=== PATIENT | female | born 1950 | race Caucasian/White ===

== ENCOUNTER → 2018-04-16 | Outpatient (CLI) | payer MEDICARE ==
[~2018-04-16] MED LIST: ALBUTEROL INH IH; ASPIRIN EC81 M1 PO; BENTYL10 MG PO; CELEXA 20 MG TA20 M1 PO; CELEXA PO; CLOBETASOL PROP50 M1 TOP; COMBIVENT INH; DOMPERIDONE; GLUCOPHAGE1000 MG PO; HCTZ; HYDROCHLOROTHIA25 M2 PO; HYDROCODON-ACE1 EAC4; HYDROCODON-ACE1 EAC5 PO; IRON; IRON325 PO; LEVOTHYROXIN0.075 MG; LIPITOR40 MG PO; LISINOPRIL5 MG PO; MAGNES; MOBIC15 MG PO; NADOLOL 40 MG T40 M1 PO; NORCO 10-325 T1 EACH PO; NORCO 5-325 TA1 EACH PO; NORVASC5 MG PO; PERCOCET 5-3251 EACH PO; PREDNISONE 10 M10 MG PO; PRILOSEC40 MG PO; ROBAXIN 750 MG750 M1 PO; STOOL SOFTENER PO; SYNTHROID PO; SYNTHROID25 MCG PO; VAGIFEM10 MCG VG; VITAMIN B-12500 MCG PO; XANAX 0.5 MG0.5 M1 PO; XANAX 0.5 MG0.5 MG PO; ZESTORETIC 10-1 EACH PO; ZOLOFT50 MG PO; ZYRTEC10 M2 PO; [UNRECOGNIZED DRUG - OTHER] TOP
== END ==
LOC: M.RAD 13:53
DX: Z12.31 Encounter for screening mammogram for malignant neoplasm of breast (principal)

== ENCOUNTER → 2018-04-29 | Outpatient (CLI) | payer MEDICARE | LOC: M.RAD 04-21 12:29 | DX: R92.8 Other abnormal and inconclusive findings on diagnostic imaging of breast (principal); N63.10 Unspecified lump in the right breast, unspecified quadrant ==

== ENCOUNTER → 2018-05-08 | Outpatient (CLI) | payer MEDICARE ==
--- NOTE | 2018-05-19 15:06 | PATH ---
[address] [address] PATHOLOGY RPT PROCEDURE Name: ROXY SHIPMAN [id number] Admission: 05/08/18 Date of : 54 Discharge: Report #: [id number] Path Case #: [id number] [facility] Accession Number: [id number] . 01 Material submitted: . PART A: RIGHT POSTERIOR BREAST BIOPSY PART B: RIGHT SUPERIOR BREAST BIOPSY . 01 Clinical history: . A. Right breast stereotactic biopsy for mass #1 posterior B. Right breast stereotactic biopsy for mass #2 superior . . 02 Diagnosis: A. Right posterior breast mass, stereotactic biopsy: - Fat necrosis (see comment). . B. Right superior breast mass, stereotactic biopsy: - INFILTRATING DUCTAL ADENOCARCINOMA, HIGH-GRADE (III 0F III), SPANNING 9 MM (SEE COMMENT). [facility] . 02 Comment: Specimen B Specimen type: Stereotactic biopsy. Tumor site: Right superior breast. Tumor quantitation: Approximately 60% of submitted tissues. Histologic type: Ductal adenocarcinoma Histologic grade: High-grade (III of III). Tubules, nuclei and mitoses: 3, 2, 3. LVSI: Not identified. Microcalcifications: Identified in non-neoplastic breast. Markers: Breast tumor profile pending. Block: B3. . . In the right posterior breast biopsy (A) no breast epithelial tissues are identified. No ductal carcinoma in situ or LCIS is seen in the right superior breast biopsy. A properly controlled E-cadherin stain performed on B1 highlights neoplastic cells supporting the classification. Breast tumor profile studies are pending on B3 and will be the subject of an addendum report. Specimens A and B are reviewed with Dr. Garcia who agrees with the diagnoses. Suellen Alvarado ([facility] Breast Navigator) notified at approximately 1100 on 05/12/2018. (TONY:[facility] 05/11/2018) . 02 Addendum: . Special studies report received from [facility], [address] [place] [address] PATHOLOGY RPT PROCEDURE Name: ROXY SHIPMAN Room: [facility]#: [id number] Admission: 05/08/18 Date of : 54 Discharge: Report #: [id number] Path Case #: [id number] [place], [address] [facility], [place], [address], on case [id number], labeled with their number [id number], dated 05/18/2018. . Breast/Prognostic Marker Analysis . Specimen Site: Rt Breast,Superior Mass Specimen ID #: [id number] . . ER (Estrogen Receptor) Present/Positive Percent: 100.00% Analysis: Manual Comments: Staining intensity: Strong . MS (Progesterone Receptor) Present/Positive Percent: 90.00% Analysis: Manual Comments: Staining intensity: Moderate to strong . HER2 Not Over-Expressed Score: 1+ Analysis: Manual . Ki-67 High Proliferation Percent: 25.00% Analysis: Manual . Time to Fixation (Cold Ischemic Time): 5 minutes Duration of Fixation: Not Provided Type of Fixative: 10% Neutral Buffered Formalin . at [facility]. Yvrose Richardson M.D. Pathologist . . Methodology The HER2 Receptor protein expression is analyzed using the [place] HER2 rabbit monoclonal antibody (clone 4B5). This assay is used for diagnostic determination of the HER2 protein over-expression in paraffin embedded, formalin fixed breast cancer tissue on the [place] Benchmark. The specimen is processed using a polymer detection system. The membrane staining of the tumor is determined either by manual score or image analysis. This antibody is intended for in vitro diagnostic use. [place] [address] PATHOLOGY RPT PROCEDURE Name: ROXY SHIPMAN Room: [facility] NATALIE Woo#: [id number] Admission: 05/08/18 Date of : 54 Discharge: Report #: [id number] Path Case #: [id number] per package insert; 0, 1+, 2+, and 3+. This test is used for clinical purposes. . A rabbit monoclonal antibody (clone SP1) that recognized the Estrogen Receptor is used to perform immunohistochemistry on routinely fixed (formalin) paraffin embedded tissue on the [place] Benchmark. The specimen is processed using a polymer detection system. The percentage of stained tumor nuclei is determined either manually or by image analysis. This test is intended for in vitro diagnostic use. This test is used for clinical purposes. . A rabbit monoclonal antibody (clone 1E2) that recognized the Progesterone Receptor is used to perform immunohistochemistry on routinely fixed (formalin) paraffin embedded tissue on the [place] Benchmark. The specimen is processed using a polymer detection system. The percentage of stained tumor nuclei is determined either manually or by image analysis. This test is intended for in vitro diagnostic use. This test is used for clinical purposes. . A rabbit monoclonal antibody (clone 30-9) that recognized Ki67 is used to perform immunohistochemistry on routinely fixed (formalin) paraffin embedded tissue on the [place] Benchmark. The specimen is processed using a polymer detection system. The percentage of stained tumor nuclei is determined either manually or by image analysis. This test is intended for in vitro diagnostic use. This test is used for clinical purposes. . Intended Use: This antibody is intended for in vitro diagnostic (IVD) use. HER2 (4B5) is a rabbit monoclonal antibody intended for the semi-quantitative detection of HER2 antigen in sections of formalin-fixed, paraffin embedded normal and neoplastic tissue. . This antibody is intended for in vitro diagnostic (IVD) use. Estrogen Receptor (ER) (SP1) is a rabbit monoclonal antibody (IgG) that is intended for the qualitative detection of estrogen receptor (ER) antigen in sections of formalin-fixed, paraffin-embedded tissue. ER is a rabbit monoclonal antibody that recognizes human estrogen receptor alpha. . This antibody is intended for in vitro diagnostic (IVD) use. Progesterone Receptor (MS) (1E2) is a rabbit monoclonal antibody (IgG) that is intended for the qualitative detection of progesterone receptor (MS) antigen in sections of formalin fixed, paraffin embedded tissue. MS is a rabbit monoclonal antibody that recognizes the A and B forms of the human progesterone receptor. . This antibody is intended for in vitro diagnostic (IVD) use. Ki-67 (30-9) is a rabbit monoclonal antibody (IgG) directed against C-terminal portion of Ki-67 antigen. Staining for Ki-67 can be used to aid in assessing the proliferative activity of normal and neoplastic tissue. [facility] [place] [address] PATHOLOGY RPT PROCEDURE Name: ROXY SHIPMAN Mehran Room: [facility]#: [id number] Admission: 05/08/18 Date of : 54 Discharge: Report #: [id number] Path Case #: [id number] protein expressed in proliferating cells. During the cell cycle, the Ki-67 antigen is present in the G1, S, G2 and M phase but is absent in the G0 (quiescent phase). . . Disclaimer This Test was performed by [facility] at [address], [address]. . [facility] is a business unit of [employer] a wholly-owned subsidiary of [employer]. . This assay has not been validated on decalcified tissues. Results should be interpreted with caution if this specimen was decalcified given the likelihood of false negativity on decalcified specimens. . Any image(s) that accompany this report is/are a sales representative sales manager image(s) only and should not be used to render a diagnosis. . This interpretation is contingent on the specimen and the clinical information received. . For any special tests/stains performed, known positive cells or tissues are tested with each marker and examined to ensure positivity. Positive and negative internal controls, if present, react appropriately. . This analysis is an adjunct to the evaluation of the referring physician and does not represent a final diagnosis. . The immunohistochemistry tests performed at [facility]. were validated on tissue fixed in 10% neutral buffered formalin. The performance characteristics of the tests performed on tissue processed in other fixatives is not known. . . HER2 testing at [facility] is performed in compliance with the 2013 updated ASCO/CAP Clinical Practice Guidelines and Recommendations for HER2 testing in Breast Cancer. If the result is EQUIVOCAL (2+), it must be confirmed by an alternative assay such as FISH or Dual BOOM. REF: Donis OTERO, et al. Recommendations for human epidermal growth factor receptor 2 testing in breast cancer: [place] Society of Clinical Oncology/College of [place] pathologists Clinical Practice Guideline Update. J Clin Oncol. 2013 Jun 04;31(31):5381-3267. . HER2 and ER/MS ASCO/CAP guidelines require fixation in neutral buffered formalin for a minimum of 6 and a maximum of 72 hours. Fixation times less than 6 hours may not adequately preserve cell proteins. Fixation times longer than 72 hours may cause excess [place] [address] PATHOLOGY RPT PROCEDURE Name: ROXY SHIPMAN Room: [facility] Woo#: [id number] Admission: 05/08/18 Date of : 54 Discharge: Report #: [id number] Path Case #: [id number] the antigen available for staining. Either scenario can cause reduced staining; hence false negative results are possible and should be considered for these situations if the HER2 IHC score is less than 3+ or ER or MS is negative (no staining or <1% positive). It is recommended that specimens fixed longer than 72 hours with HER2 IHC scores less than 3+ be confirmed by HER2 FISH or Dual BOOM. The time from biopsy/excision to fixation in formalin (cold ischemic time) must be less than 1 hour. Time to fixation (cold ischemic time) greater than 1 hour should be interpreted with caution. HER2 testing, mainly HER2 by FISH, is particularly vulnerable since excessive cold ischemic time results in preferential loss of HER2 probe signals that may lead to false negative results. . SCORE STAINING PATTERN IN TUMOR CELLS INTERPRETATION RESULTS 0 No staining observed or incomplete, faint membrane staining in less than or equal to 10% of tumor cells. Negative 1+ Incomplete, faint membrane staining in greater than 10% of tumor cells. Negative 2+ Incomplete and/or weak/moderate circumferential membrane staining in greater than 10% of the invasive tumor cells or complete, circumferential, intense alternative assay staining in less than or equal to 10% of invasive tumor cells. Equivocal* *Must be confirmed by alternative assay (IHC/FISH/Dual BOOM) 3+ Intense, complete membrane staining in greater than 10% of tumor cells. Positive . A complete copy of the report is on file. . Professional and Technical services performed by [facility]. at [address] [place] [address]. . (SAMIR 05/18/2018) . . This case was prepared and proofread by Dr. Anthony Fraser and electronically signed and released by Dr. Viktor Orellana. . (TONY:samir; 05/18/2018) . LBQ/05/18/2018 Addendum Electronically Signed by Viktor Orellana M.D. . 02 Electronically signed: [place] [address] PATHOLOGY RPT PROCEDURE Name: ROXY SHIPMAN Room: [facility]#: [id number] Admission: 05/08/18 Date of : 54 Discharge: Report #: [id number] Path Case #: [id number] Anthony Fraser MD, Pathologist NPI- [id number] . 01 Gross description: . A. Received in formalin labeled "Roxy Shipman, right breast 1 posterior stereotactic BX," are multiple needle cores of yellow-sandhu fibrofatty tissue measuring 3.5 x 3.2 x 0.5 cm in aggregate dimensions. The tissue is submitted in its entirety in cassettes A1 through A3. The cold ischemic time is 2 minutes. The total formalin fixation time is 6 hours and 45 minutes. . B. Received in formalin labeled "Roxy Shipman, right breast 2 superior stereotactic BX," are multiple needle cores of yellow-sandhu fibrofatty tissue measuring 3.2 x 2.7 x 0.6 cm in aggregate dimensions. The tissue is submitted in its entirety in cassettes B1 through B3. The cold ischemic time is 5 minutes. The total formalin fixation time is 6 hours and 10 minutes (TSD; 05/08/2018) TOB/TOB . 02 Pathologist provided ICD-10: C50.911, N64.1 . 02 CPT . 471712, 819729, I03736 Specimen Comment: A courtesy copy of this report has been sent to Specimen Comment: [phone], . Specimen Comment: Report sent to / DR CANCHOLA Specimen Comment: A duplicate report has been generated due to demographic updates. Performed at: 01 [facility] [address], [place], [place] [id number] MD Yrn Benjamin MD Phone: [phone] Performed at: 02 [facility] [address], [place], [place] [id number] MD Anthony Fraser MD Phone: [phone]
== END ==
LOC: M.RAD 10:55
DX: N63.10 Unspecified lump in the right breast, unspecified quadrant (principal); R92.8 Other abnormal and inconclusive findings on diagnostic imaging of breast

== ENCOUNTER → 2018-05-26 | Outpatient (CLI) | payer MEDICARE | LOC: M.ULTRA 05-25 08:00 | DX: N63.10 Unspecified lump in the right breast, unspecified quadrant (principal) ==

== ENCOUNTER → 2018-06-08 | Day surgery (SDC) | payer MEDICARE ==
[2018-06-08 06:55] LABS: HEMATOCRIT 32.4 % (37.0-47.0); HEMOGLOBIN 10.9 gm/dL (12.0-15.0); MCH 28.3 pg (26.0-34.0); MCHC 33.7 g/dL (28.0-37.0); MPV 7.5 fl. (7.2-11.1); RBC 3.85 mil/uL (4.20-5.00); RDW-CV 14.6 % (10.5-14.5); WBC 8.1 thou/uL (4.0-11.0)
[2018-06-08 07:05] LABS: CALCIUM 9.1 mg/dL (8.5-10.1); CREATININE 1.2 mg/dL (0.6-1.3); POTASSIUM 4.1 mmol/L (3.5-5.1)
--- NOTE | 2018-06-08 11:46 | EKG ---
[place] [address] ELECTROCARDIOGRAM REPORT Name: RAMONITAKILO Mehran Room: [facility]#: [id number] Admission: 06/08/18 Attend Phys: Inés Abel MD Discharge: Date of : 54 Report #: [id number] THIS REPORT FOR: //name// [facility] Test Date: 2018-06-08 Test Time: 07:42:02 Pat Name: KILO SHIPMAN Department: Room: Gender: F Verifying Machine Operator: : 1950 Requested By: Inés Abel Order Number: [id number] Ehsan MD: Augustus Salguero Measurements Intervals [place] Rate: 98 P: 41 WA: 141 QRS: 38 QRSD: 92 T: 58 QT: 337 QTc: 431 Interpretive Statements Sinus rhythm Abnormal R-wave progression, early transition Compared to ECG 06/27/2015 22:16:50 No significant changes Electronically Signed On 06-08-2018 11:45:55 [employer] HEL[employer] by Augustus Salguero [email or web address] <ELECTRONICALLY SIGNED> By: Augustus Salguero MD, [facility] 06/08/18 1145 1 Augustus Salguero MD, FACC /EPI
--- NOTE | 2018-07-02 08:29 | OP ---
[address] [address] OPERATIVE REPORT Name: KILO SHIPMAN Room: [facility]#: [id number] Admission: 06/08/18 Attend Phys: Inés Abel MD Discharge: Date of : 54 Report #: [id number] THIS REPORT FOR: //name// CC: Inés Rico DATE OF SERVICE: 06/08/2018 PREOPERATIVE DIAGNOSIS: Right breast cancer. POSTOPERATIVE DIAGNOSIS: Right breast cancer. PROCEDURE: 1. Injection of blue dye. 2. Right breast needle localized lumpectomy. 3. Right axillary sentinel lymph node biopsy. SURGEON: Inés Abel MD TELEPHOTO ENGINEER: ILYA Wellington. COMPLICATIONS: None. ANESTHESIA: General anesthesia. ESTIMATED BLOOD LOSS: 15 mL. SPECIMENS REMOVED: 1. Right breast cancer. 2. Right breast new superior margin. 3. Right breast new lateral margin. 4. Right breast new inferior margin. 5. Right breast new medial margin. 6. Right breast new posterior margin. 7. Right breast new anterior margin -- medial. 8. Right breast new anterior margin -- lateral. 9. Right axillary sentinel lymph node #1, hot, blue, 35,000. 10. Right axillary sentinel lymph node #2, hot, not blue, 175. 11. Right axillary sentinel lymph node #3, hot, not blue, max count 4200. COMPLICATIONS: None. OTHER: Incision 4 cm in length, 2 cm from nipple 1 o'clock periareolar and other clip and lesion within the mammographic specimen and sentinel node x 1 [place] [address] OPERATIVE REPORT Name: RAMONITAKILO Mehran Room: [facility]#: [id number] Admission: 06/08/18 Attend Phys: Inés Abel MD Discharge: Date of : 54 Report #: [id number] INDICATIONS: The patient is a 68-year-old female with a palpable mass in her right breast. Imaging on 04/16/2018 and 04/29/2018 showed a 2.1 cm ill-defined lobulated mass at the anterior medial right breast and a 6 mm hypoechoic focus at 1 o'clock, 3 cm from nipple. A stereotactic biopsy of both lesions on 05/08/2018, path of the more anterior lesion at the nipple level was grade 3 invasive ductal carcinoma, ER/OK positive, HER-2 negative, Ki-67 of 25%. The more posterior and superior lesion was fat necrosis. She was unable to do an MRI due to extreme claustrophobia. She was interested in breast conservation with lumpectomy and sentinel node biopsy. Risks and benefits for such were discussed with the patient and delineated in the H and P. She agreed to proceed. PROCEDURE IN DETAIL: The patient was brought to the operating room after informed consent had been obtained. She was placed under general anesthesia in the supine position with her right arm extended. Preoperatively, she had been taken to ultrasound and mammogram for wire localization of the mass, followed by Nuclear Medicine for injection for the sentinel node portion of the case. A 5 mL of Lymphazurin blue was injected in an intradermal and subdermal location in the upper outer periareolar region of the right breast. The right breast and axilla were then prepped and draped in normal sterile manner. Prior to all skin incisions a combination of 1% lidocaine plain and 0.5% Marcaine with epinephrine was used. The periareolar skin incision was made with a knife. This was deepened to the subcutaneous tissues using Bovie electrocautery. A path was created toward the wire exit site. Once the wire was identified, it was grasped with 2 hemostats and brought into the incision. The Bovie electrocautery was used to excise a lump of tissue surrounding the pathway of the wire. Once this was completely removed, it was labeled for orientation purposes and handed off the field. The wound bed was then examined. It was copiously irrigated with normal saline and noted to be adequately hemostatic. Attention was then turned for resection of margins. Attention was turned to the region of the superior margin. This region was grasped with an Allis clamp. The Bovie electrocautery was used to excise a thin rim of tissue to encompass the new superior margin. This was labeled for orientation purposes and handed off the field. This process was then repeated with the lateral, inferior, medial, posterior and anterior margins. Meanwhile, mammogram did confirm that the clip and the lesion were within the mammographic specimen. Once all these margins were removed, the wound was copiously irrigated and noted to be adequately hemostatic. A moistened Ray-Maynor sponge was placed and attention was turned to the axilla. The area of highest counts in the axilla was marked out with a marking pen and skin incision was made in this region with a knife. This was deepened through the subcutaneous tissues using the Bovie electrocautery. A fairly superficial hot blue lymph node was identified. This did end up being a very extremely long fatty lymph node that traveled deep within the axilla. This was excised with a combination of Ligaclip and Bovie electrocautery dissection. Once completely removed, counts were obtained and this was sent off as sentinel node #1. Attention was then redirected to the axilla. An additional area of radiotracer [facility] [address] [place] [address] OPERATIVE REPORT Name: RAMONITAKILO A Room: [facility]#: [id number] Admission: 06/08/18 Attend Phys: Inés Abel MD Discharge: Date of : 54 Report #: [id number] uptake was noted. I did find a small lymph node in this area that was isolated with a combination of Ligaclips and Bovie electrocautery dissection. However, upon removal, although it was hot, it did not seem to be the area that was yielding the highest counts. Therefore this was sent off as sentinel node #2, but this was sent for permanent specimen. The axilla was then again interrogated with the Mary probe. An extremely hot area was identified, this was quite tedious dissection, but finally a lymph node was identified in this region. It was isolated with a combination of Ligaclip and Bovie electrocautery dissection, was completely removed, counts were obtained and this was sent off as sentinel node #3, but again for permanent specimen. The axilla was copiously irrigated with normal saline. The Mary probe was again used. There were no additional hot counts noted. The axilla was copiously irrigated. It was noted to be adequately hemostatic. A single interrupted suture of 3-0 Vicryl was used to reapproximate the axillary fascia. The deep dermal layers were then closed with interrupted 3-0 Vicryl sutures and skin was closed with 4-0 Monocryl in a subcuticular manner. Attention was then turned to the breast incision. The wound was again examined and noted to be adequately hemostatic. Some of the deeper tissues were reapproximated with interrupted 3-0 Vicryl sutures. The lumpectomy cavity had been marked with clips. The deep dermal layers were closed with interrupted 3-0 Vicryl sutures. The skin was closed with 4-0 Monocryl in a subcuticular manner. Both wounds were dressed with Dermabond dressing. The patient tolerated the procedure well. Sponge, lap and needle counts were correct x 2 at the end of procedure. She was transferred to recovery in stable condition. <ELECTRONICALLY SIGNED> By: Inés Abel MD 07/02/18 0829 1237 [id number] Abel MD /nt
--- NOTE | 2018-07-02 11:08 | PATH ---
[address] [address] PATHOLOGY RPT PROCEDURE Name: ROXY SHIPMAN Mehran Room: [facility]#: [id number] Admission: 06/08/18 Date of : 54 Discharge: Report #: [id number] Path Case #: [id number] [facility] Accession Number: [id number] . 01 Material submitted: . PART A: FROZEN, RIGHT AXILLARY SENTINEL NODE #1 HOT, BLUE, AMX COUNT [id number] PART B: RIGHT SENTINEL LYMPH NODE #2 HOT, NOT BLUE, MAX COUNT 175 PART C: RIGHT SENTINEL LYMPH NODE #3, HOT, NOT BLUE, MAX COUNT 4200 PART D: RIGHT BREAST CANCER, LONG LATERAL, SHORT SUP, DOUBLE DEEP PART E: RIGHT BREAST CANCER, NEW SUP MARGIN PART F: RIGHT BREAST CANCER, NEW LATERAL MARGIN PART G: RIGHT BREAST CANCER, NEW INFERIOR MARGIN PART H: RIGHT BREAST CANCER, NEW MEDIAL MARGIN PART I: RIGHT BREAST CANCER, NEW POSTERIOR MARGIN PART J: RIGHT BREAST CANCER, NEW ANTERIOR/MEDIAL MARGIN PART K: RIGHT BREAST CANCER, NEW ANTERIOR LATERAL MARGIN . 01 Clinical history: . Right breast cancer . 02 Diagnosis: A. Right axillary sentinel lymph node #1, hot, blue, max count 35,000: - One benign lymph node with massive fatty replacement (0/1). See comment. . B. Right sentinel lymph node #2, hot, not blue, max count 175 - One benign lymph node (0/1). See comment. . C. Right sentinel lymph node #3, hot, not blue, max count 4200: - One benign lymph node (0/1). See comment. . D. Right breast cancer, lumpectomy: - INFILTRATING DUCTAL ADENOCARCINOMA, HIGH-GRADE, MICROPAPILLARY TYPE, SPANNING 18 X 15 X 8 MM, WITH FOCAL INVOLVEMENT OF ANTERIOR MARGIN. - DUCTAL CARCINOMA IN SITU (DCIS), HIGH-GRADE, SOLID AND COMEDO TYPES, SPANNING 2 MM, WITH ALL SURGICAL MARGINS FREE OF INVOLVEMENT AND CLOSEST (ANTERIOR/SUPERFICIAL) 2 MM AWAY. SEE COMMENT. . E. Right breast cancer, new superior margin: - Benign breast with luminal calcifications, negative for atypia. . F. Right breast cancer, new lateral margin: - Benign breast tissue with mild chronic inflammation and luminal calcifications, negative for atypia. . G. Right breast cancer, new inferior margin: - Benign breast tissue, negative for atypia. . H. Right breast cancer, new medial margin: - Benign breast tissue, [place] [address] PATHOLOGY RPT PROCEDURE Name: ROXY SHIPMAN Room: [facility]#: [id number] Admission: 06/08/18 Date of : 54 Discharge: Report #: [id number] Path Case #: [id number] . I. Right breast cancer, new posterior margin: - Benign breast tissue with mild chronic inflammation, negative for atypia. . J. Right breast cancer, new anterior / medial margin: - Benign breast tissue, negative for atypia. See comment. . K. Right breast cancer, new anterior lateral margin: - Benign breast tissue, negative for atypia. [facility]/06/11/2018 . 02 Comment: Surgical Pathology Cancer Case Summary . Protocol posting date: August 2017 . INVASIVE CARCINOMA OF THE BREAST: . Procedure ___ Other: Lumpectomy . Specimen Laterality ___ Right . Tumor Size ___ Greatest dimension of largest invasive focus >1 mm: 18 mm . Histologic Type ___ Invasive micropapillary carcinoma . Histologic Grade (Virgilio Histologic Score) . Glandular (Acinar)/Tubular Differentiation ___ Score 3 (<10% of tumor area forming glandular/tubular structures) . Nuclear Pleomorphism ___ Score 2 (cells larger than normal with open vesicular nuclei, visible nucleoli, and moderate variability in both size and shape) . Mitotic Rate ___ Score 3 (=8 mitoses per mm2) . Overall Grade ___ Grade 3 (scores of 8 or 9) . + Tumor Focality + ___ Single [place] [address] PATHOLOGY RPT PROCEDURE Name: ASHLEYROXY Mehran Room: [facility].#: [id number] Admission: 06/08/18 Date of : 54 Discharge: Report #: [id number] Path Case #: [id number] . Ductal Carcinoma In Situ (DCIS) ___ Present + ___ Negative for extensive intraductal component (EIC) . + Size of DCIS + Estimated size of DCIS: at least 2 mm . + Architectural Patterns + ___ Comedo + ___ Solid . + Nuclear Grade + ___ Grade III (high) . + Necrosis + ___ Present, central (expansive "comedo" necrosis) . + Lobular Carcinoma In Situ (LCIS) + ___ No LCIS in specimen . Margins . Invasive Carcinoma Margins ___ Uninvolved by invasive carcinoma Distance from closest margin: ___ Cannot be determined: Focal marginal involvement of anterior margin in specimen D with uncertain orientation of additional subsequent new anterior / medial and new anterior / lateral margins (specimens J and K) . DCIS Margins ___ Uninvolved by DCIS Distance from closest margin: ___ Cannot be determined: See explanation for marginal status of invasive tumor . Regional Lymph Nodes . ___ Uninvolved by tumor cells Number of Lymph Nodes Examined: 3 Number of [place] Nodes Examined: 3 . + Lymphovascular Invasion + ___ Indeterminant, see comment . PATHOLOGIC STAGE CLASSIFICATION (pTNM, AJCC 8TH EDITION) . Primary Tumor (Invasive Carcinoma) (pT) ___ pT1c:Tumor >10 mm but =20 mm in greatest dimension [address] [address] PATHOLOGY RPT PROCEDURE Name: ROXY SHIPMAN Room: [facility] M.R.#: [id number] Admission: 06/08/18 Date of : 54 Discharge: Report #: [id number] Path Case #: [id number] . Regional Lymph Nodes (pN) . Modifier ___ (sn):[place] node(s) evaluated. If 6 or more nodes (sentinel or nonsentinel) are removed, this modifier should not be used. . Category (pN) ___ pN0:No regional lymph node metastasis identified or ITCs only# . + Ancillary Studies Breast tumor profile performed previously on right superior breast mass stereotactic biopsy ([id number] B3): . Estrogen receptor: 100% Progesterone receptor: 90% HER2: 1+/not overexpressed Ki-67: 25% . + Microcalcifications + ___ Present in non-neoplastic tissue + ___ Present in invasive tumor . + Clinical History + Right superior breast stereotactic biopsy performed around 05/08/2018 showing high-grade ductal carcinoma spanning 9 mm ([id number] B) . Properly controlled keratin AE1/AE3 stains performed on A1, B1, and C1 and keratin Bereket performed on A4 show no evidence of metastatic tumor. The initial lumpectomy showed focal involvement of the anterior margin in D7; however, per discussion with Dr. Natalee Abel on 06/11/2018, she notes specimens J and K provided wider clearance of this focus. The tumor infiltrates predominantly in a micropapillary fashion with some areas of solid nest infiltration and a focus indeterminant for lymphovascular invasion is seen in D12. There is minimal DCIS present with the largest focus noted within the confines of the infiltrating tumor in D10. Per request of Dr. Abel, Oncotype testing will be performed on D9 and will be the subject of a separate report. (TONY:wade 06/11/2018) . 02 Addendum: . Special studies report received from [employer]. Oncotype DX Breast Cancer Assay, [address] [place] [address], on case [id number], labeled with their number [id number], dated 06/19/2018. . Breast Cancer Report - Node Negative [place] [address] PATHOLOGY RPT PROCEDURE Name: ROXY SHIPMAN Room: [facility]#: [id number] Admission: 06/08/18 Date of : 54 Discharge: Report #: [id number] Path Case #: [id number] Recurrence Score Result=8 . Oncotype DX Breast Recurrence Score test uses RT-PCR to determine the expression of a panel of 21 genes in tumor tissue. The Recurrence Score is calculated from the gene expression results and ranges from 0-100. . The findings are applicable to women who have stage I or II node negative (N-), estrogen receptor positive (ER+) breast cancer, and will be treated with 5 years of tamoxifen (royal). It is unknown whether the findings apply to other patients outside these criteria. . Clinical Experience: The following results are from a clinical validation study that included 668 patients from the NSABP B-14 study. The study included female patients with stage I or II, N-, ER+ breast cancer treated with 5 years of royal. . . Prognosis: 10-Year Risk of Distant Recurrence after 5 Years of Royal, Based on the Recurrence Score Result (from NSABP B-14) . 10-Year Risk of Distant Recurrence . Royal Alone: 6% (95% Cl: 4%-8%) . . . Breast Cancer Report - Node Negative Prediction of Chemotherapy Benefit . Recurrence Score Result=8 . The findings are applicable to women who have stage I or II node negative (N-), estrogen receptor positive (ER+) breast cancer and will be treated with 5 years of tamoxifen (royal). It is unknown whether the findings apply to other patients outside these criteria. . Clinical Experience: The following results are from a clinical validation study that included 651 patients from the NSABP B-20 study. The study included female patients with stage I or II, N-, ER+ breast cancer. Patients were randomized to either royal alone or royal plus CMF or MF chemotherapy. For patients in the pre-specified group with Recurrence Score results = 31, the group average 10-year risks (95% CI) of distant recurrence were 40% (25%, 54%) for royal alone and 12% (6%, 18%) for royal + CMF/MF.1 . Prediction of Chemotherapy Benefit after 5 Years of Royal, Based on the Recurrence Score Result (from NSABP B-20) . Royal Alone: [place] [address] PATHOLOGY RPT PROCEDURE Name: ROXY SHIPMAN Room: [facility] M.R.#: [id number] Admission: 06/08/18 Date of : 54 Discharge: Report #: [id number] Path Case #: [id number] Royal + Chemo: Low risk . . . Quantitative Single Gene Report The Oncotype DXr test uses RT-PCR to determine the RNA expression of the genes below. These results may differ from estrogen receptor (ER), progesterone receptor (VT), or human epidermal growth factor receptor 2 (HER2) results reported using other methods or reported by other laboratories.1 The ER, VT, and HER2 Scores are also included in the calculation of the Recurrence Score result. . ER Score = 11.9 Positive . VT Score = 9.8 Positive . HER2 Score = 9.7 Negative . . Coal Conveyor Operator: Eric Johnson MD . A complete copy of the report is on file. . Professional services performed by [facility] [address] [place], [place] [address] [address]. Technical services performed by [facility] [address] [place], [place] [address] [address]. . (AMJ 06/19/2018) . AZJ/06/19/2018 Addendum Electronically Signed by Anthony Fraser MD, Pathologist Addendum #2: Special studies report received from [facility], [address] [place] [address], [address], [place], [address], on case [id number], labeled with their number [id number], dated 07/01/2018. . Fluorescence in situ Hybridization (FISH) Report HER2/KAUSHIK-17 Dual-Probe (Breast Cancer) . Result: Negative/Not Amplified HER2/KAUSHIK-17 Ratio: 1.2 Avg number of HER2 Signals/Nucleus: 3.8 . Indication for Study: Breast cancer . Specimen Site/Type: Right Breast Lumpectomy Tissue . Fixative: 10% Neutral [place]fered [place] [address] PATHOLOGY RPT PROCEDURE Name: ROXY SHIPMAN Room: [facility] M.R.#: [id number] Admission: 06/08/18 Date of : 54 Discharge: Report #: [id number] Path Case #: [id number] Time to Fixation: 4 minutes . Duration of Fixation: 33 hours 8 minutes . HER2 FISH ANALYSIS Number of tumor cells counted: 20 Number of observers: 2 Avg number of HER2 Signals/Nucleus: 3.8 Avg number of KAUSHIK-17 Signals/Nucleus: 3.3 Ratio of average HER2/KAUSHIK-17: 1.2 . Reviewed and electronically signed by Donnie Seth M.D. on 07/01/2018 at [facility]. Donnie Seth M.D. Pathologist . . Methodology: A FDA approved DAKO HER2 IQFISH pharmDX (HER2/KAUSHIK-17 DNA Probe Kit) was used for the assessment of HER2 gene amplification status. The FISH analysis was performed on areas of invasive tumor cells that were defined by a pathologist from a corresponding H and E slide. A minimum of twenty invasive tumor nuclei were analyzed by two technologists. For each nucleus, the number of HER2 signals and the number of centromere 17 (KAUSHIK-17) signals were recorded. Enumeration results are reported as a ratio of the total HER2 hybridization signals to KAUSHIK-17 hybridization signals. An average number of HER2 signals/nucleus and an average number of centromere 17 signals/nucleus were also recorded. If the HER2/KAUSHIK-17 ratio is >/= 2, the HER2 gene status is Amplified/Positive. If the HER2/KAUSHIK-17 ratio is <2, the HER2 gene status is Non-Amplified/Negative. If results are at or near the cut off (1.8-2.2), an additional 20 nuclei are counted and the ratio for 40 nuclei is recalculated. A HER2/KAUSHIK-17 ratio of 1.8-2.2 should be interpreted with caution. The HER2 FISH results are reported using the 2018 ASCO/CAP guidelines. . ASCO/CAP 2018 SCORING CRITERIA GROUP 1 HER2/KAUSHIK-17 ratio >/= 2.0 HER2 signals/cell >/= 4.0 FISH Positive . GROUP 2 HER2/KAUSHIK-17 ratio >/= 2.0 HER2 signals/cell < 4.0 Additional work-up required (see comments) . GROUP 3 HER2/KAUSHIK-17 ratio < 2.0 HER2 signals/cell >/= 6.0 [place] [address] PATHOLOGY RPT PROCEDURE Name: ROXY SHIPMAN Mehran Room: [facility]#: [id number] Admission: 06/08/18 Date of : 54 Discharge: Report #: [id number] Path Case #: [id number] Additional work-up required (see comments) . GROUP 4 HER2/KAUSHIK-17 ratio < 2.0 HER2 signals/cell >/= 4.0 AND < 6.0 Additional work-up required (see comments) . GROUP 5 HER2/KAUSHIK-17 ratio < 2.0 HER2 signals/cell < 4.0 FISH Negative . Specimen handling: Tissue samples should be preserved in 10% neutral buffered formalin for 18-24 hours per FDA approved DAKO HER2 IQFISH pharmDX. Extended fixation time might increase the incubation time required for Pepsin digestion. ASCO/CAP guidelines requires fixation for a minimum of 6 and a maximum of 72 hours. The time from biopsy/excision to fixation in formalin (cold ischemic time) must be less than an hour. Time to fixation (cold ischemic time) greater than 1 hour should be interpreted with caution. HER2 testing, mainly HER2 by FISH, is particularly vulnerable since excessive cold ischemic time results in preferential loss of HER2 probe signals that may lead to false negative results. . Intended Use: HER2 IQFISH pharmDX is indicated as an aid in the assessment of breast cancer patients for whom Herceptin? (Trastuzumab), PERJETATM (pertuzumab) or KADCYLATM (ado-trastuzumab emtansine) treatment is being considered. Results from HER2 IQFISH pharmDX are also used as an adjunct to the clinicopathologic information currently used for estimating prognosis in stage II, node-positive breast cancer patients. . Reference: Donis AC, Caleb ME, Claudia DG, et al: Recommendations for HER2 Testing in Breast Cancer: ASCP/CAP Clinical Practice Guideline Update. J Clin Oncol. 2013 Jun 04; 31(31):2895-3056. . DAKO kit: Histology FISH Accessory kit code K5799 . Disclaimer This Test was performed by [employer] at [address] [place] [address], [facility]. [facility] is a business unit of [employer] a wholly-owned subsidiary of [employer]. . . This assay has not been validated on decalcified tissues. Results should be interpreted with caution if this specimen was [place] [address] PATHOLOGY RPT PROCEDURE Name: ROXY SHIPMAN [id number]: 06/08/18 Date of : 54 Discharge: Report #: [id number] Path Case #: [id number] likelihood of false negativity on decalcified specimens. . Any image(s) that accompany this report is/are a sales representative church furniture image(s) only and should not be used to render a diagnosis. . A copy of the complete report is on file. . Professional services performed by [facility] at [address], [place] [address]. Technical services performed by [employer] at [address], [place] [address]. . (AMJ 07/01/2018) . AZJ/07/01/2018 Addendum Electronically Signed by Anthony Fraser MD, Pathologist . 02 Electronically signed: . Anthony Fraser MD, Pathologist NPI- [id number] . 01 Gross description: . A. Received fresh from the OR, initially placed into formalin and accompanied by a label marked "Roxy Shipman, right axillary sentinel lymph node #1; hot, blue, max count 35,000; frozen section". Per discussion with Dr. Abel, she requests intraoperative analysis and the specimen is immediately rinsed of formalin and it measures 8 x 3.5 x 1 cm having several roc and a black suture near one end. Dissection of the tissues reveals some blue staining near the sutured end and there is a thin rim of lymphoid tissue along much of the mass of mostly fat. There is no evidence of neoplasia. The tissues are demonstrated to Dr. Abel and subsequently submitted as follows: A1-A3: Dominant lymphoid tissue nearest suture and blue staining. A4 and A5: Remaining rim of lymphoid tissue trimmed away from fat. (TONY:frederick; 06/08/2018) . B. The specimen is received in formalin, labeled "Roxy Shipman, right sentinel lymph node #2, hot, not blue, max count 175". Received is a segment of bright yellow lobulated tissue measuring 2.3 x 1.8 x 0.6 cm in greatest dimensions. Dissection and palpation of the specimen reveals two possible lymph nodes measuring 0.2 and 0.5 cm in maximum dimensions. The lymph nodes are submitted intact in cassette B1. Immunohistochemical stains are ordered. . C. The specimen is received in formalin, labeled "Roxy Shipman, right sentinel lymph node #3, hot, not blue, max count 4200". Received is a segment of yellow-persaud lobulated tissue measuring 1.5 x 0.8 x 0.4 cm in greatest dimensions. Dissection and palpation of the specimen reveals two possible lymph nodes measuring 0.4 and 0.5 cm in maximum [place] [address] PATHOLOGY RPT PROCEDURE Name: ROXY SHIPMAN Room: [facility].#: [id number] Admission: 06/08/18 Date of : 54 Discharge: Report #: [id number] Path Case #: [id number] lymph nodes are submitted intact in cassette C1. Immunohistochemical stains are ordered. . D. The specimen is received in formalin, labeled "Roxy Shipman, right breast cancer, long lateral, short superior, double deep". Received is a 33 g lumpectomy specimen oriented with a short suture designating the superior margin, a long suture designating the lateral margin, and a double suture designating the deep/posterior margin. The specimen measures 9.2 cm from superior to inferior, 5.5 cm from medial to lateral, and 1.5 cm from superficial/anterior to deep/posterior. There is a localization wire present within the specimen container, however, it is not attached to the specimen. The specimen is inked as follows: Superior-blue, inferior-green, lateral-red, medial-yellow, superficial/anterior-black, deep/posterior-orange. Sectioning reveals a previous biopsy site measuring 1.0 x 0.7 x 0.4 cm. A metallic clip is not identified. This site is 2.1 cm from the superior margin, 8.0 cm from the inferior margin, 0.5 cm from the superficial/anterior margin, 0.4 cm from the deep/posterior margin, 0.7 cm from the medial margin, and 2.2 cm from the lateral margin. Immediately superior to the previous biopsy site, there is a poorly circumscribed white-persaud, firm mass measuring 1.8 x 1.5 x 0.8 cm. This mass is 0.5 cm from the superior margin, 5.2 cm from the inferior margin, grossly approaches the superficial/anterior margin, and is 0.5 cm from the deep/posterior margin, 0.9 cm from the lateral margin, and 1.0 cm from the medial margin. The remainder of the specimen displays bright yellow, lobulated cut surfaces with a slight amount of fibrous tissue present along the lateral margin adjacent to the mass, with a maximum dimension of 1.1 cm. 3.2 cm inferior to the primary previous biopsy site, there is a second previous biopsy site measuring 0.8 x 0.6 x 0.5 cm. A metallic clip is not identified. This site is 6.8 cm from the superior margin, 3.6 cm from the inferior margin, 0.3 cm from the superficial/anterior margin, 0.3 cm from the deep/posterior margin, 0.9 cm from the medial margin, and 2.8 cm from the lateral margin. Residual tumor is not grossly identified surrounding this site. The specimen is submitted representatively as follows: . D1 most superior margin D2 most inferior margin D3-D5 entire previous biopsy site submitted from superior to inferior aspects D6-D13 entire mass submitted from superior to inferior aspects, with sections in cassettes D10 through D13 additionally bisected into lateral and medial aspects D14-D15 entire second previous biopsy site. . The cold ischemic time is 4 minutes. The total formalin fixation time is 33 hours and 8 minutes. . E. The specimen is received in formalin, labeled "Roxy Shipman, right breast cancer, new superior margin, stitch godinez new margin". [place] [address] PATHOLOGY RPT PROCEDURE Name: ROXY SHIPMAN Room: [facility]#: [id number] Admission: 06/08/18 Date of : 54 Discharge: Report #: [id number] Path Case #: [id number] a 9 g segment of bright yellow lobulated tissue measuring 4.5 x 3.5 x 2.0 cm in greatest dimensions with a suture designating the new superior margin. The specimen is inked as follows: New margin-blue, remainder of specimen-black. Sectioning reveals bright yellow, lobulated cut surfaces throughout with no grossly distinct nodules or lesions. The specimen is submitted entirely in cassettes E1 through E10. The cold ischemic time is 8 minutes. The total formalin fixation time is 33 hours and 4 minutes. . F. The specimen is received in formalin, labeled "Roxy Shipman, right breast cancer, new lateral margin, stitch godinez new margin". Received is a 6 g segment of bright yellow lobulated tissue measuring 4.3 x 2.7 x 1.4 cm in greatest dimensions with a suture designating the new lateral margin. The specimen is inked as follows: New margin-red, remainder of specimen-black. Sectioning reveals bright yellow, lobulated cut surfaces throughout with a slight amount of fibrous tissue present along the new lateral margin. The specimen is submitted entirely in cassettes F1 through F8. The cold ischemic time is 10 minutes. The total formalin fixation time is 33 hours. . G. The specimen is received in formalin, labeled "Roxy Shipman, right breast cancer, new inferior margin, stitch godinez new margin". Received is a 5 g segment of bright yellow lobulated tissue measuring 4.8 x 3.2 x 1.4 cm in greatest dimensions with a suture designating the new inferior margin. The specimen is inked as follows: New margin-green, remainder of specimen-black. Sectioning reveals bright yellow, lobulated cut surfaces throughout with no grossly distinct nodules or lesions. The specimen is submitted entirely in cassettes G1 through G8. The cold ischemic time is 11 minutes. The total formalin fixation time is 32 hours and 58 minutes. . H. The specimen is received in formalin, labeled "Roxy Shipman, right breast cancer, new medial margin, stitch godinez new margin". Received is a 2 g segment of bright yellow lobulated tissue measuring 3.1 x 1.9 x 1.2 cm in greatest dimensions with a suture designating the new medial margin. The specimen is inked as follows: New margin-yellow, remainder of specimen-black. Sectioning reveals bright yellow, lobulated cut surfaces throughout with no grossly distinct nodules or lesions. The specimen is submitted entirely in cassettes H1 through H4. The cold ischemic time is 16 minutes. The total formalin fixation time is 32 hours and 41 minutes. . I. The specimen is received in formalin, labeled "Roxy Shipman, right breast cancer, new posterior margin, stitch godinez new margin". Received is a 6 g segment of bright yellow lobulated tissue measuring 4.3 x 2.8 x 2.0 cm in greatest dimensions with a suture designating the new posterior margin. The specimen is inked as follows: New margin-orange, remainder of specimen-black. Sectioning reveals bright yellow, lobulated cut surfaces throughout with no grossly distinct nodules or lesions. The specimen is submitted entirely in cassettes I1 through I9. The cold ischemic time is 17 minutes. The total formalin fixation time is 32 hours and 48 [place] [address] PATHOLOGY RPT PROCEDURE Name: ROXY SHIPMAN Room: [facility] M.R.#: [id number] Admission: 06/08/18 Date of : 54 Discharge: Report #: [id number] Path Case #: [id number] J. The specimen is received in formalin, labeled "Roxy Ashley, right breast cancer, new anterior/medial margin, stitch godinez new margin". Received is a 1 g segment of bright yellow lobulated tissue 2.3 x 2.0 x 1.0 cm in greatest dimensions with a suture designating the new anterior/medial margin. The specimen is inked as follows: New margin-yellow, remainder of specimen-red. Sectioning reveals bright yellow, lobulated cut surfaces throughout with no grossly distinct nodules or lesions. The specimen is submitted entirely in cassettes J1 through J3. The cold ischemic time is 18 minutes. The total fallen fixation time is 32 hours and 46 minutes. . K. The specimen is received in formalin, labeled "Roxy Ashley, right breast cancer, new anterior/lateral margin, stitch godinez new margin. Received is a 1 g segment of bright yellow lobulated tissue measuring 2.9 x 1.4 x 1.0 cm in greatest dimensions with a suture designating the new anterior/lateral margin. The specimen is inked as follows: New margin-red, remainder of specimen-blue. The sectioning reveals bright yellow, lobulated cut surfaces throughout with no grossly distinct nodules or lesions. The specimen is submitted entirely in cassettes K1 through K4. The cold ischemic time is 16 minutes. The total formalin fixation time is 32 hours and 45 minutes. (CAA; 06/09/2018) . . GROSS INTRAOPERATIVE CONSULTATION (Anthony Fraser MD) . (Specimen A) Right axillary sentinel lymph node #1, max count 35,000: - Benign lymph node with massive fatty replacement. . Results are entered into the medical record. (TONY:frederick; 06/09/2018) . Gross intraoperative consultation performed at [facility], [address] [place] [id number]. QAC/QAC . 02 Pathologist provided ICD-10: C50.911, D05.11 . 02 CPT . 872488, 365638, 154602, 751253, 044529, 255684, 403976, 155254, 125409, 870424, 610760, R12872, D60063, 724550 Performed at: 01 [facility] [address], [place], [place] [id number] MD Yrn Benjamin MD Phone: [phone] Performed at: [address] [facility] [address] [address] PATHOLOGY RPT PROCEDURE Name: ROXY SHIPMAN Room: [facility].#: [id number] Admission: 06/08/18 Date of : 54 Discharge: Report #: [id number] Path Case #: [id number] [address] [facility] [place] [id number] MD Anthony Fraser MD Phone: [phone]
== END | disposition home or self-care (01) ==
LOC: M.SUR 06:35
PROVIDERS: Surgery
DX: C50.911 Malignant neoplasm of unspecified site of right female breast (principal); E11.9 Type 2 diabetes mellitus without complications; J45.909 Unspecified asthma, uncomplicated; F41.9 Anxiety disorder, unspecified; G89.29 Other chronic pain; Z87.19 Personal history of other diseases of the digestive system; Z90.710 Acquired absence of both cervix and uterus; Z98.890 Other specified postprocedural states; Z79.899 Other long term (current) drug therapy; Z88.2 Allergy status to sulfonamides; Z88.8 Allergy status to other drugs, medicaments and biological substances; Z79.891 Long term (current) use of opiate analgesic

== ENCOUNTER → 2018-07-07 | Outpatient (CLI) | payer MEDICARE | LOC: M.RAD 13:30 | DX: M81.0 Age-related osteoporosis without current pathological fracture (principal); E03.9 Hypothyroidism, unspecified; E11.9 Type 2 diabetes mellitus without complications; Z78.0 Asymptomatic menopausal state; Z85.3 Personal history of malignant neoplasm of breast ==

== ENCOUNTER → 2019-07-15 | Outpatient (CLI) | payer MEDICARE | LOC: M.RAD 15:09 | DX: Z12.31 Encounter for screening mammogram for malignant neoplasm of breast (principal) ==

== ENCOUNTER 2019-12-20 19:07 | Emergency (ER) | payer MEDICARE ==
[~2019-12-20] VITALS: Ht 152.4 cm; Wt 90.7 kg
[2019-12-20] MEDS ORDERED: ARIMIDEX1 MG PO (19:19)
[2019-12-20 19:45] LABS: ABSOLUTE BASOPHILS 0.1 thou/uL (0.0-0.2); ABSOLUTE LYMPHOCYTES 1.2 thou/uL (0.8-5.3); ABSOLUTE MONOCYTES 0.9 thou/uL (0.0-1.2); ABSOLUTE NEUTROPHILS 8.5 thou/uL (1.6-8.1); BASOPHILS 0.9 %; EOSINOPHILS 0.1 %; HEMATOCRIT 32.7 % (37.0-47.0); HEMOGLOBIN 11.5 gm/dL (12.0-15.0); LYMPHOCYTES 11.3 %; MCH 29.6 pg (26.0-34.0); MCHC 35.2 g/dL (28.0-37.0); MCV 84.2 fL (80.0-100.0); MONOCYTES 8.2 %; MPV 7.7 fl. (7.2-11.1); NUCLEATED RBCS 0 /100WBC; PLATELET COUNT* 300 thou/uL (150-400); POLYS 79.5 %; RBC 3.89 mil/uL (4.20-5.00); RDW-CV 14.2 % (10.5-14.5); WBC 10.7 thou/uL (4.0-11.0)
[2019-12-20 19:54] LABS: URINE BILIRUBIN NEGATIVE (Negative); URINE BLOOD NEGATIVE (Negative); URINE CLARITY CLEAR; URINE COLOR YELLOW; URINE GLUCOSE-RANDOM NEGATIVE (Negative); URINE KETONES NEGATIVE (Negative); URINE LEUKOCYTES-REFLEX TRACE (Negative); URINE NITRITE-REFLEX NEGATIVE (Negative); URINE PROTEIN NEGATIVE (Negative); URINE UROBILINOGEN 0.2 E.U./dl (0.2-1.0)
[2019-12-20 19:54] LABS: CALCIUM 8.7 mg/dL (8.5-10.1); CREATININE 1.1 mg/dL (0.6-1.3); POTASSIUM 3.3 mmol/L (3.5-5.1)
[2019-12-20 19:58] LABS: ALBUMIN 3.5 g/dL (3.4-5.0); TOTAL BILIRUBIN 0.3 mg/dL (<0.1-1.0); TOTAL PROTEIN 7.2 g/dL (6.4-8.2)
[2019-12-20 20:02] LABS: MAGNESIUM 0.9 mg/dL (1.8-2.4)
[2019-12-20 20:03] LABS: BACTERIA-REFLEX 1-9 Few /HPF (None Seen); CASTS None Seen /LPF (None Seen); CRYSTALS None Seen /LPF (None Seen); SQUAMOUS 0-3 Few /LPF (0-3); URINE RBC 0-2 Rare /HPF (0-2); URINE WBC-REFLEX 0-5 Rare /HPF (0-5)
[2019-12-20] MEDS ORDERED: CARAFATE 1 GM TA1 GM PO (23:09)
[2019-12-20] MEDS ORDERED: ZOFRAN ODT4 MG PO (23:09)
[2019-12-20 23:17] VITALS: BP 145/79
--- NOTE | 2019-12-21 12:49 | EKG ---
[place] [address] ELECTROCARDIOGRAM REPORT Name: KILO SHIPMAN Room: [facility]#: [id number] Admission: 12/20/19 Attend Phys: Discharge: 12/20/19 Date of : 54 Date of Service: 12/20/191915 Report #: [id number] THIS REPORT FOR: //name// [facility] ED Test Date: 2019-12-20 Test Time: 19:16:50 Pat Name: KILO SHIPMAN Department: Room: Gender: Sand Mixer: [place] : 1950 Requested By: Vonda Dee Order Number: [id number] MD: Augustus Salguero Measurements Intervals [place] Rate: 96 P: 42 WI: 125 QRS: 20 QRSD: 93 T: 51 QT: 367 QTc: 464 Interpretive Statements Sinus rhythm Atrial premature complex Borderline T abnormalities, anterior leads Compared to ECG 06/08/2018 07:42:02 Atrial premature complex(es) now present T-wave abnormality now present Electronically Signed On 12-21-2019 12:47:21 CDT by Augustus Salguero [email or web address] <ELECTRONICALLY SIGNED> By: Augustus Salguero MD, [facility] 12/21/19 1247 15 15 Augustus Salguero MD, [facility] /EPI
== END 2019-12-20 23:18 | disposition home or self-care (01) ==
LOC: M.ERS 19:07
PROVIDERS: Emergency Medicine
DX: E83.42 Hypomagnesemia (principal); E87.1 Hypo-osmolality and hyponatremia; E11.9 Type 2 diabetes mellitus without complications; K58.9 Irritable bowel syndrome, unspecified; J45.909 Unspecified asthma, uncomplicated; F41.9 Anxiety disorder, unspecified; Z90.710 Acquired absence of both cervix and uterus; Z90.11 Acquired absence of right breast and nipple; Z88.1 Allergy status to other antibiotic agents; Z88.2 Allergy status to sulfonamides; Z88.8 Allergy status to other drugs, medicaments and biological substances